=== PATIENT | male | born 1995 | race Caucasian/White ===

== ENCOUNTER 2017-05-08 13:47 | Emergency (ER) | payer SELFPAY ==
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
--- NOTE | 2017-05-08 14:24 | RAD ---
HISTORY: Neck pain, subacute trauma COMPARISONS: None VIEWS: 3, Frontal, lateral, and open-mouth odontoid views of the cervical spine. FINDINGS: The cervical spine is visualized from the skull base through C7-T1. ALIGNMENT: There is straightening of the normal cervical lordosis. VERTEBRAL BODIES: The odontoid process is intact. The atlantoaxial intervals are symmetric. JOINTS: There is no subluxation or dislocation. The facet joints are unremarkable. INTERVERTEBRAL DISCS: The intervertebral disc heights are normal. SOFT TISSUE: The prevertebral soft tissues are normal. OTHER: The skull base is normal. The lung apices are clear. IMPRESSION: STRAIGHTENING OF THE CERVICAL LORDOSIS. NO ACUTE OSSEOUS INJURY TO THE CERVICAL SPINE.
[2017-05-08 14:40] VITALS: BP 130/73
== END 2017-05-08 14:51 | disposition home or self-care (01) ==
LOC: UCCORT 13:47
DX: S16.1XXA Strain of muscle, fascia and tendon at neck level, initial encounter (principal); V43.52XA Car driver injured in collision with other type car in traffic accident, initial encounter
CPT/HCPCS: 72040; 99212; G0463

== ENCOUNTER 2018-08-06 20:36 | Emergency (ER) | payer SELFPAY ==
--- NOTE | 2018-08-06 22:29 | RAD ---
EXAM: CT Head Without Intravenous Contrast CLINICAL HISTORY: 22 years old, male; Injury or trauma; Fall; Injury date: 08/06/18; Injury details: Patient fell 20 feet from tree stand onto back this morning at 0640, denies loc, bilateral sides of posterior neck pain, also has anterior neck pain TECHNIQUE: Axial computed tomography images of the head/brain without intravenous contrast. All CT scans at this facility use at least one of these dose optimization techniques: automated exposure control; mA and/or kV adjustment per patient size (includes targeted exams where dose is matched to clinical indication); or iterative reconstruction. COMPARISON: No relevant prior studies available. FINDINGS: Brain: No acute ischemic changes, extra axial fluid collections, intraparenchymal hemorrhage, or midline shift. Ventricles: Normal. No ventriculomegaly. Symmetrical in position. Bones/joints: No acute fracture. No suspicious osseous lesions. Soft tissues: Normal. Sinuses: Normal as visualized. Mastoid air cells: Normal as visualized. No mastoid effusion. IMPRESSION: No traumatic intracranial abnormalities.
--- NOTE | 2018-08-06 22:34 | RAD ---
EXAM: CT Cervical Spine Without Intravenous Contrast CLINICAL HISTORY: 22 years old, male; Injury or trauma; Fall; Initial encounter; Concussion /head injury; Injury date: 08/06/18; Additional info: Patient fell 20 feet from tree stand onto back this morning at 0640, denies loc, bilateral sides of posterior neck pain, also has anterior neck pain TECHNIQUE: Axial computed tomography images of the cervical spine without intravenous contrast. All CT scans at this facility use at least one of these dose optimization techniques: automated exposure control; mA and/or kV adjustment per patient size (includes targeted exams where dose is matched to clinical indication); or iterative reconstruction. Coronal and sagittal reformatted images were created and reviewed. COMPARISON: DX CSP PART SP CERVICAL 2-3 VWS 05/08/2017 2:08 PM FINDINGS: Vertebrae: Normal cervical lordosis without spondylolisthesis.The craniocervical junction and atlantoaxial articulation are symmetric and normal. No fractures. Vertebral body heights are maintained. Discs/spinal canal/neural foramina: C2-C3:There is no significant disc space narrowing. No canal stenosis or foraminal narrowing. The facet joints are normal. C3-C4:There is no significant disc space narrowing. No canal stenosis or foraminal narrowing. The facet joints are normal. C4-C5: There is no significant disc space narrowing. No canal stenosis or foraminal narrowing. The facet joints are normal. C5-C6:There is no significant disc space narrowing. No canal stenosis or foraminal narrowing. The facet joints are normal. C6-C7:There is no significant disc space narrowing. No canal stenosis or foraminal narrowing. The facet joints are normal. C7-T1:There is no significant disc space narrowing. No canal stenosis or foraminal narrowing. The facet joints are normal. Soft tissues: Normal. Lung apices: Normal as visualized. IMPRESSION: No cervical spine traumatic abnormalities.
--- NOTE | 2018-08-06 22:52 | UC ---
Truncal Trauma HPI - HPI Summary HPI Summary: 22-year-old male who comes in to clinic today with complaint of right-sided rib pain, right hip pain and neck pain and anterior abdominal chest pain and head injury out of after falling out of a tree 20 feet approximately 12 hours ago this morning. He landed primarily on his right hip and his right side. He felt his head jerked back and strike the ground when he landed. He had mild photophobia during the day. It's been having neck pain during the day. No shortness of breath. He got scraped by a branch on the way down and he has an abrasion from his abdomen up into his chest. And urinate and have a bowel movement normally today. Denies any abdominal pain other than the abrasion. No complaint of any arm or leg pain. - History Of Current Complaint Chief Complaint: UCBackPain Stated Complaint: BACK INJURY Time Seen by Provider: 08/06/18 21:21 Pain Intensity: 6 - Allergies/Home Medications Allergies/Adverse Reactions: Allergies Allergy/AdvReac Type Severity Reaction Status Date / Time No Known Allergies Allergy Verified 08/06/18 20:56 Home Medications: Home Medications NK [No Home Medications Reported] 08/06/18 [History Confirmed 08/06/18] PMH/Surg Hx/FS Hx/Imm Hx - Surgical History Surgical History: None - Family History Known Family History: Positive: None Negative: Cardiac Disease, Hypertension - Social History Alcohol Use: Occasionally Substance Use Type: None Smoking Status (MU): Never Smoked Tobacco - Immunization History Vaccination Up to Date: Yes Review of Systems Constitutional: Negative Skin: Other - See history present illnesssee hpi Eyes: Negative ENT: Negative Respiratory: Other - splinting rt chest pain Cardiovascular: Chest Pain - see hpi Gastrointestinal: Negative Genitourinary: Negative Motor: Negative Neurovascular: Negative Musculoskeletal: Other: - see hpi Neurological: Negative Psychological: Negative Is Patient Immunocompromised?: No All Other Systems Reviewed And Are Negative: Yes Physical Exam Triage Information Reviewed: Yes Appearance: Well-Appearing, Well-Nourished, Pain Distress - mild Vital Signs: Initial Vital Signs Temp 98.2 F 08/06/18 20:48 Pulse 75 08/06/18 20:48 Resp 18 08/06/18 20:48 BP 139/90 08/06/18 20:48 Pulse Ox 79 08/06/18 20:48 Vital Signs Reviewed: Yes Eye Exam: Normal Eyes: Positive: Conjunctiva Clear ENT: Positive: Normal ENT inspection Neck: Positive: Other: - mild tenderness to palpation posteriorly Respiratory: Positive: Other: - tender to palpation right ribs. Cardiovascular: Positive: RRR Abdomen Description: Positive: Nontender, Other: - Patient has a 30 cm abrasion from the middle of his abdomen onto the right side of his chest. Not full- thickness. Otherwise his abdomen is nontender. He is mildly tender at the right iliac crest is minimal ecchymosis that.. Negative: CVA Tenderness (R), CVA Tenderness (L) Bowel Sounds: Positive: Present Musculoskeletal Exam: Normal Musculoskeletal: Positive: Strength Intact, ROM Intact Neurological Exam: Normal Neurological: Positive: Alert Psychological Exam: Normal Psychological: Positive: Age Appropriate Behavior Skin: Positive: Other - . Truncal Trauma Course/Dx - Course Course Of Treatment: CT Cervical Spine Without Intravenous Contrast. CLINICAL HISTORY: 22 years old, male; Injury or trauma; Fall; Initial encounter; Concussion. /head injury; Injury date: 08/06/18; Additional info: Patient fell 20 feet from. tree stand onto back this morning at 0640, denies loc, bilateral sides of. posterior neck pain, also has anterior neck pain. TECHNIQUE: Axial computed tomography images of the cervical spine without intravenous. contrast. All CT scans at this facility use at least one of these dose. optimization techniques: automated exposure control; mA and/or kV adjustment. per patient size (includes targeted exams where dose is matched to clinical. indication); or iterative reconstruction. Coronal and sagittal reformatted images were created and reviewed. COMPARISON: DX CSP PART SP CERVICAL 2-3 VWS 05/08/2017 2:08 PM. FINDINGS: Vertebrae: Normal cervical lordosis without spondylolisthesis.The. craniocervical junction and atlantoaxial articulation are symmetric and normal. No fractures. Vertebral body heights are maintained. Discs/spinal canal/neural foramina: C2-C3:There is no significant disc space narrowing. No canal stenosis or. foraminal narrowing. The facet joints are normal. C3-C4:There is no significant disc space narrowing. No canal stenosis or. foraminal narrowing. The facet joints are normal. C4-C5: There is no significant disc space narrowing. No canal stenosis or. foraminal narrowing. The facet joints are normal. C5-C6:There is no significant disc space narrowing. No canal stenosis or. foraminal narrowing. The facet joints are normal. C6-C7:There is no significant disc space narrowing. No canal stenosis or. foraminal narrowing. The facet joints are normal. C7-T1:There is no significant disc space narrowing. No canal stenosis or. foraminal narrowing. The facet joints are normal. Soft tissues: Normal. Lung apices: Normal as visualized. IMPRESSION: No cervical spine traumatic abnormalities. End of Report Content . . Attending Doctor: Channing Ceballos ([id number]). Partner Marketing Manager: Maribel Millan ( [id number]). Automatic Gluing Machine Operator: Margarette ZUNIGA ([id number]). Report Date: 08/06/2018 21: 52:00. Report Status: Final. Begin of Report Content . Patient Name: ALFONZO GREER Medical Record#: [id number]. Ordering Physician: Channing Ceballos MD Acct.#: [id number]. : 1995 Age: 22 Sex: M Location: [facility]. Exam Date: 11/23 ADM Status: REG ER. Order Information: CT SPINE CERVICAL W/O. Accession Number: [id number]. CPT: 71765. EXAM: CT Cervical Spine Without Intravenous Contrast. CLINICAL HISTORY: 22 years old, male; Injury or trauma; Fall; Initial encounter; Concussion. /head injury; Injury date: 08/06/18; Additional info: Patient fell 20 feet from. tree stand onto back this morning at 0640, denies loc, bilateral sides of. posterior neck pain, also has anterior neck pain. TECHNIQUE: Axial computed tomography images of the cervical spine without intravenous. contrast. All CT scans at this facility use at least one of these dose. optimization techniques: automated exposure control; mA and/or kV adjustment. per patient size (includes targeted exams where dose is matched to clinical. indication); or iterative reconstruction. Coronal and sagittal reformatted images were created and reviewed. COMPARISON: DX CSP PART SP CERVICAL 2-3 VWS 05/08/2017 2:08 PM. FINDINGS: Vertebrae: Normal cervical lordosis without spondylolisthesis.The. craniocervical junction and atlantoaxial articulation are symmetric and normal. No fractures. Vertebral body heights are maintained. Discs/spinal canal/neural foramina: C2- C3:There is no significant disc space narrowing. No canal stenosis or. foraminal narrowing. The facet joints are normal. C3-C4:There is no significant disc space narrowing. No canal stenosis or. foraminal narrowing. The facet joints are normal. C4-C5: There is no significant disc space narrowing. No canal stenosis or. foraminal narrowing. The facet joints are normal. C5-C6:There is no significant disc space narrowing. No canal stenosis or. foraminal narrowing. The facet joints are normal. C6-C7:There is no significant disc space narrowing. No canal stenosis or. foraminal narrowing. The facet joints are normal. C7-T1:There is no significant disc space narrowing. No canal stenosis or. foraminal narrowing. The facet joints are normal. Soft tissues: Normal. Lung apices: Normal as visualized. IMPRESSION: No cervical spine traumatic abnormalities. . <Electronically signed by Maribel Millan MD in OV> 08/06/18 2234. Order Information: CT BRAIN WO. Accession Number: [id number]. CPT: 33227. EXAM: CT Head Without Intravenous Contrast. CLINICAL HISTORY: 22 years old, male; Injury or trauma; Fall; Injury date: 08/06/18; Injury. details: Patient fell 20 feet from tree stand onto back this morning at 0640,. denies loc, bilateral sides of posterior neck pain, also has anterior neck pain. TECHNIQUE: Axial computed tomography images of the head/brain without intravenous. contrast. All CT scans at this facility use at least one of these dose. optimization techniques: automated exposure control; mA and/or kV adjustment. per patient size (includes targeted exams where dose is matched to clinical. indication); or iterative reconstruction. COMPARISON: No relevant prior studies available. FINDINGS: Brain: No acute ischemic changes, extra axial fluid collections,. intraparenchymal hemorrhage, or midline shift. Ventricles: Normal. No ventriculomegaly. Symmetrical in position. Bones/joints : No acute fracture. No suspicious osseous lesions. Soft tissues: Normal. Sinuses: Normal as visualized. Mastoid air cells: Normal as visualized. No mastoid effusion. IMPRESSION: No traumatic intracranial abnormalities. . <Electronically signed by Maribel Millan MD in [place]> 08/06/18 [id number]. The rib x-rays and chest x-rays did not see any fractures or any abnormalities. Radiologist reading pending. CT and x-ray reports discussed with the patient. Plan is to recheck if he worsens or has any questions or concerns. - Differential Dx/Diagnosis Provider Diagnoses: head injury. neck pain. rib and right hip contusion. abrasion Discharge - Sign-Out/Discharge Documenting (check all that apply): Patient Departure All imaging exams completed and their final reports reviewed: No - Discharge Plan Condition: Stable Disposition: HOME Patient Education Materials: Head Injury (ED), Neck Pain (ED), Cervical Sprain (ED), Rib Contusion (ED), Contusion in Adults (ED), Abrasion (ED) Referrals: [facility] [Outside] Additional Instructions: FOLLOW UP WITH YOUR DOCTOR IF NOT COMPLETELY IMPROVED. GET RECHECKED FOR ANY WORSENING OF YOUR CONDITION OR QUESTIONS OR CONCERNS. - Billing Disposition and Condition Condition: STABLE Disposition: Home
[2018-08-06 23:18] VITALS: BP 120/82
--- NOTE | 2018-08-07 07:49 | RAD ---
HISTORY: rt sided chest pain s/p fall COMPARISONS: None VIEWS: 7 , Frontal view of the chest with frontal and oblique views of the right hemithorax. FINDINGS: There is no displaced rib fracture or pneumothorax. The visualized lungs are clear. IMPRESSION: NO DISPLACED FRACTURE OR PNEUMOTHORAX. R0
--- NOTE | 2018-08-07 08:07 | ED ---
Progress - Progress Note Progress Note: CXR NAD 08/06/18, NO CHANGE IN CARE Course/Dx - Course Course Of Treatment: CT Cervical Spine Without Intravenous Contrast. CLINICAL HISTORY: 22 years old, male; Injury or trauma; Fall; Initial encounter; Concussion. /head injury; Injury date: 08/06/18; Additional info: Patient fell 20 feet from. tree stand onto back this morning at 0640, denies loc, bilateral sides of. posterior neck pain, also has anterior neck pain. TECHNIQUE: Axial computed tomography images of the cervical spine without intravenous. contrast. All CT scans at this facility use at least one of these dose. optimization techniques: automated exposure control; mA and/or kV adjustment. per patient size (includes targeted exams where dose is matched to clinical. indication); or iterative reconstruction. Coronal and sagittal reformatted images were created and reviewed. COMPARISON: DX CSP PART SP CERVICAL 2-3 VWS 05/08/2017 2:08 PM. FINDINGS: Vertebrae: Normal cervical lordosis without spondylolisthesis.The. craniocervical junction and atlantoaxial articulation are symmetric and normal. No fractures. Vertebral body heights are maintained. Discs/spinal canal/neural foramina: C2-C3:There is no significant disc space narrowing. No canal stenosis or. foraminal narrowing. The facet joints are normal. C3-C4:There is no significant disc space narrowing. No canal stenosis or. foraminal narrowing. The facet joints are normal. C4-C5: There is no significant disc space narrowing. No canal stenosis or. foraminal narrowing. The facet joints are normal. C5-C6:There is no significant disc space narrowing. No canal stenosis or. foraminal narrowing. The facet joints are normal. C6-C7:There is no significant disc space narrowing. No canal stenosis or. foraminal narrowing. The facet joints are normal. C7-T1:There is no significant disc space narrowing. No canal stenosis or. foraminal narrowing. The facet joints are normal. Soft tissues: Normal. Lung apices: Normal as visualized. IMPRESSION: No cervical spine traumatic abnormalities. End of Report Content . . Attending Doctor: Channing Ceballos ([id number]). Content Manager: Maribel Millan ( [id number]). Corn Miller: Margarette ZUNIGA (VRAD). Report Date: 08/06/2018 21: 52:00. Report Status: Final. Begin of Report Content . Patient Name: ALFONZO GREER Medical Record#: [id number]. Ordering Physician: Channing Ceballos MD Acct.#: [id number]. : 1995 Age: 22 Sex: M Location: [facility]. Exam Date: 11/23 ADM Status: REG ER. Order Information: CT SPINE CERVICAL W/O. Accession Number: [id number]. CPT: 42501. EXAM: CT Cervical Spine Without Intravenous Contrast. CLINICAL HISTORY: 22 years old, male; Injury or trauma; Fall; Initial encounter; Concussion. /head injury; Injury date: 08/06/18; Additional info: Patient fell 20 feet from. tree stand onto back this morning at 0640, denies loc, bilateral sides of. posterior neck pain, also has anterior neck pain. TECHNIQUE: Axial computed tomography images of the cervical spine without intravenous. contrast. All CT scans at this facility use at least one of these dose. optimization techniques: automated exposure control; mA and/or kV adjustment. per patient size (includes targeted exams where dose is matched to clinical. indication); or iterative reconstruction. Coronal and sagittal reformatted images were created and reviewed. COMPARISON: DX CSP PART SP CERVICAL 2-3 VWS 05/08/2017 2:08 PM. FINDINGS: Vertebrae: Normal cervical lordosis without spondylolisthesis.The. craniocervical junction and atlantoaxial articulation are symmetric and normal. No fractures. Vertebral body heights are maintained. Discs/spinal canal/neural foramina: C2- C3:There is no significant disc space narrowing. No canal stenosis or. foraminal narrowing. The facet joints are normal. C3-C4:There is no significant disc space narrowing. No canal stenosis or. foraminal narrowing. The facet joints are normal. C4-C5: There is no significant disc space narrowing. No canal stenosis or. foraminal narrowing. The facet joints are normal. C5-C6:There is no significant disc space narrowing. No canal stenosis or. foraminal narrowing. The facet joints are normal. C6-C7:There is no significant disc space narrowing. No canal stenosis or. foraminal narrowing. The facet joints are normal. C7-T1:There is no significant disc space narrowing. No canal stenosis or. foraminal narrowing. The facet joints are normal. Soft tissues: Normal. Lung apices: Normal as visualized. IMPRESSION: No cervical spine traumatic abnormalities. . <Electronically signed by Maribel Millan MD in OV> 08/06/18 2234. Order Information: CT BRAIN WO. Accession Number: [id number]. CPT: 81475. EXAM: CT Head Without Intravenous Contrast. CLINICAL HISTORY: 22 years old, male; Injury or trauma; Fall; Injury date: 08/06/18; Injury. details: Patient fell 20 feet from tree stand onto back this morning at 0640,. denies loc, bilateral sides of posterior neck pain, also has anterior neck pain. TECHNIQUE: Axial computed tomography images of the head/brain without intravenous. contrast. All CT scans at this facility use at least one of these dose. optimization techniques: automated exposure control; mA and/or kV adjustment. per patient size (includes targeted exams where dose is matched to clinical. indication); or iterative reconstruction. COMPARISON: No relevant prior studies available. FINDINGS: Brain: No acute ischemic changes, extra axial fluid collections,. intraparenchymal hemorrhage, or midline shift. Ventricles: Normal. No ventriculomegaly. Symmetrical in position. Bones/joints : No acute fracture. No suspicious osseous lesions. Soft tissues: Normal. Sinuses: Normal as visualized. Mastoid air cells: Normal as visualized. No mastoid effusion. IMPRESSION: No traumatic intracranial abnormalities. . <Electronically signed by Maribel Millan MD in OV> 08/06/18 7244. The rib x-rays and chest x-rays did not see any fractures or any abnormalities. Radiologist reading pending. CT and x-ray reports discussed with the patient. Plan is to recheck if he worsens or has any questions or concerns. Discharge - Sign-Out/Discharge Documenting (check all that apply): Patient Departure All imaging exams completed and their final reports reviewed: Yes - Discharge Plan Condition: Stable Disposition: HOME Patient Education Materials: Head Injury (ED), Contusion in Adults (ED), Cervical Sprain (ED), Abrasion (ED), Rib Contusion (ED), Neck Pain (ED) Referrals: [facility] REFERRAL [Outside] Additional Instructions: FOLLOW UP WITH YOUR DOCTOR IF NOT COMPLETELY IMPROVED. GET RECHECKED FOR ANY WORSENING OF YOUR CONDITION OR QUESTIONS OR CONCERNS. - Billing Disposition and Condition Condition: STABLE Disposition: Home
== END 2018-08-06 23:18 | disposition home or self-care (01) ==
LOC: UCEAST 20:36
DX: S09.90XA Unspecified injury of head, initial encounter (principal); M54.2 Cervicalgia; S70.01XA Contusion of right hip, initial encounter; S20.222A Contusion of left back wall of thorax, initial encounter; S20.221A Contusion of right back wall of thorax, initial encounter; S30.811A Abrasion of abdominal wall, initial encounter; S20.311A Abrasion of right front wall of thorax, initial encounter; W14.XXXA Fall from tree, initial encounter; Y93.9 Activity, unspecified; Y92.9 Unspecified place or not applicable
CPT/HCPCS: 70450; 72125; 99212; G0463

== ENCOUNTER 2019-06-16 13:36 | Emergency (ER) | payer BC ==
--- NOTE | 2019-06-16 13:42 | UC ---
Laceration HPI - HPI Summary HPI Summary: 23 yo male presents with right lower leg abrasions. He tells me that yesterday he was walking outside and stepped over a barbed wire that scratched his right calf. He cleansed the area and it has scabbed over well already today. He is unsure the date of his last tdap and is here requesting a tetanus shot. Denies pain or fever. - History Of Current Complaint Stated Complaint: LEG LACERATION Time Seen by Provider: 06/16/19 13:40 Hx Obtained From: Patient Laceration Location: Leg Mechanism Of Injury: Sharp Trauma - Allergies/Home Medications Allergies/Adverse Reactions: Allergies Allergy/AdvReac Type Severity Reaction Status Date / Time No Known Allergies Allergy Verified 06/16/19 13:46 PMH/Surg Hx/FS Hx/Imm Hx - Additional Past Medical History Additional PMH: None - Surgical History Surgical History: None - Family History Known Family History: Positive: None Negative: Cardiac Disease, Hypertension - Social History Lives: With Family Alcohol Use: Occasionally Substance Use Type: None Smoking Status (MU): Never Smoked Tobacco - Immunization History Vaccination Up to Date: Yes Review of Systems All Other Systems Reviewed And Are Negative: Yes Constitutional: Positive: Negative Skin: Positive: Other - Right lower leg abrasions Respiratory: Positive: Negative Cardiovascular: Positive: Negative Neurovascular: Positive: Negative Musculoskeletal: Positive: Negative Neurological: Positive: Negative Psychological: Positive: Negative Physical Exam - Summary Physical Exam Summary: GENERAL: NAD. WDWN. No pain distress. SKIN: Right lower leg with scatter superficial scratches - longest 10.0cm in length. No open wounds, erythema, tenderness, or drainage. CHEST: No accessory muscle use. Breathing comfortably and in no distress. CV: Pulses intact. Cap refill <2seconds NEURO: Alert. PSYCH: Age appropriate behavior. Triage Information Reviewed: Yes Vital Signs: Vital Signs: Temp Pulse Resp BP Pulse Ox 98.6 F 70 18 120/74 98 06/16/19 13:42 06/16/19 13:42 06/16/19 13:42 06/16/19 13:42 06/16/19 13:42 Vital Signs Reviewed: Yes Laceration Course/Dx - Course/Dx Course Of Treatment: tdap given today Advised to monitor the areas and if he develops pain, redness, swelling, drainage, or fever to be rechecked. - Diagnosis Provider Diagnosis: Scratch of lower leg Discharge - Sign-Out/Discharge Documenting (check all that apply): Patient Departure All imaging exams completed and their final reports reviewed: No Studies - Discharge Plan Condition: Stable Disposition: HOME Patient Education Materials: Diphtheria/Pertussis/Tetanus Vaccine (By injection ), Tdap and Td Vaccines for Adults (ED) Referrals: No Primary Care Phys,NOPCP [Primary Care Provider] - Additional Instructions: If you develop a fever, shortness of breath, chest pain, new or worsening symptoms - please call your PCP or go to the ED immediately. - Billing Disposition and Condition Condition: STABLE Disposition: Home - Attestation Statements Provider Attestation: I was available for consult. This patient was seen by the ERIN. The patient was not presented to , seen by or examined by me -Jana Smith MD
[2019-06-16 13:46] VITALS: BP 120/74
[2019-06-16] MEDS ORDERED: Tetan/Diph/Pertus SYR(Tdap)* 0.5 ML SYR(BOOSTRIX) use SYR contains LATEX IM ONE (13:46)
== END 2019-06-16 14:00 | disposition home or self-care (01) ==
LOC: UCEAST 13:36
DX: S80.811A Abrasion, right lower leg, initial encounter (principal); X58.XXXA Exposure to other specified factors, initial encounter; Y93.01 Activity, walking, marching and hiking; Y92.9 Unspecified place or not applicable; Z23 Encounter for immunization
CPT/HCPCS: 90471; 90715; 99211; G0463

== ENCOUNTER 2020-01-02 17:42 | Emergency (ER) | payer BC ==
[2020-01-02 18:11] VITALS: BP 112/76
--- NOTE | 2020-01-02 18:47 | UC ---
FLU HPI - HPI Summary HPI Summary: 24 yo with 3 week history of cough without fever, and mild respiratory symptoms. In the past 2 days, he has had signficant increase in cough and fever. Now has headache, myalgias, chills. Vapes daily. 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 Onset/Duration: Gradual Onset, Lasting Days Severity Currently: Moderate Severity Initially: Moderate Pain Intensity: 6 Associated Signs & Symptoms: Positive: Fever, Myalgia, Cough, Sore Throat, Headache - Risk Factors Influenza Risk Factors: Negative - Allergy/Home Medications Allergies/Adverse Reactions: Allergies Allergy/AdvReac Type Severity Reaction Status Date / Time No Known Allergies Allergy Verified 01/02/20 18:11 Home Medications: Home Medications Doxylam/PE/Dm/Acetaminophen/GG [Vicks Dayquil/Nyquil Ese] 1 liq PO Q6H [History Confirmed 01/02/20] PMH/Surg Hx/FS Hx/Imm Hx Previously Healthy: Yes - Surgical History Surgical History: None - Family History Known Family History: Positive: None, Hypertension - mother Negative: Cardiac Disease - Social History Occupation: Employed Full-time Lives: With Family Alcohol Use: Occasionally Substance Use Type: None Smoking Status (MU): Never Smoked Tobacco - Immunization History Vaccination Up to Date: Yes Review of Systems All Other Systems Reviewed And Are Negative: Yes Constitutional: Positive: Fever, Fatigue Skin: Positive: Negative Eyes: Positive: Negative ENT: Positive: Sore Throat Respiratory: Positive: Cough. Negative: Shortness Of Breath Cardiovascular: Negative: Palpitations, Chest Pain Gastrointestinal: Positive: Negative Genitourinary: Positive: Negative Motor: Positive: Negative Neurovascular: Positive: Negative Musculoskeletal: Positive: Myalgia Neurological/Mental Status: Positive: Headache Psychological: Positive: Negative Is Patient Immunocompromised?: No Physical Exam Triage Information Reviewed: Yes Appearance: Ill-Appearing - looks mildly unwell Vital Signs: Initial Vital Signs Temp 102.4 F 01/02/20 18:07 Pulse 105 01/02/20 18:07 Resp 16 01/02/20 18:07 BP 112/76 01/02/20 18:07 Pulse Ox 97 01/02/20 18:07 Eyes: Positive: Conjunctiva Clear ENT: Positive: Pharyngeal erythema, TMs normal. Negative: Tonsillar swelling Neck: Positive: Supple, Nontender, No Lymphadenopathy Respiratory: Positive: Lungs clear, Normal breath sounds Cardiovascular: Positive: RRR, No Murmur Musculoskeletal Exam: Normal Neurological Exam: Normal Psychological Exam: Normal Skin Exam: Normal Diagnostics - Laboratory Lab Results: influenza B positive Flu Course/Dx - Course Course Of Treatment: symptomatic treatment of influenza. - Differential Dx/Diagnosis Differential Diagnosis/HQI/PQRI: Influenza, Upper Respiratory Infection Provider Diagnosis: Influenza B Discharge ED - Sign-Out/Discharge Documenting (check all that apply): Patient Departure All imaging exams completed and their final reports reviewed: No Studies - Discharge Plan Condition: Stable Disposition: HOME Patient Education Materials: Influenza (ED) Forms: *Work Release Referrals: No Primary Care Phys,NOPCP [Primary Care Provider] - Additional Instructions: You have influenza B; this will resolve on its own but requires supportive care. Increase rest and fluids, ensuing that you have an intake of 1.5 to 2 liters of fluid per day. Use ibprofen and acetaminophen for relief of fever. Follow up if you have worsening shortness of breath or difficulty breathing. - Billing Disposition and Condition Condition: STABLE Disposition: Home
[2020-01-02 18:51] LABS: Influenza B Molecular POSITIVE (Negative)
== END 2020-01-02 19:35 | disposition home or self-care (01) ==
LOC: UCEAST 17:42
DX: J10.1 Influenza due to other identified influenza virus with other respiratory manifestations (principal)
CPT/HCPCS: 99211; G0463